=== PATIENT | female | born 1935 | race Caucasian/White ===

== ENCOUNTER → 2016-03-22 | Outpatient (CLI) | payer MEDICARE, BC | LOC: MC.RAD 09:39 | DX: Z12.31 Encounter for screening mammogram for malignant neoplasm of breast (principal) ==

== ENCOUNTER 2017-08-15 06:41 | Day surgery (SDC) | payer MEDICARE, BC ==
[~2017-08-15] VITALS: Ht 157.5 cm; Wt 55.0 kg
[2017-08-15 07:09] VITALS: BP 153/87; PULSE 83; TEMP 98.2
[2017-08-15] MEDS ORDERED: NATURAL E400 IU PO (07:13)
[2017-08-15] MEDS ORDERED: MULTIPLE VITAMI1 TA5 PO (07:13)
[2017-08-15] MEDS ORDERED: ADVIL200 MG PO (07:14)
[2017-08-15 09:00] VITALS: BP 135/77; PULSE 65; TEMP 97.7
[2017-08-15 09:15] VITALS: BP 148/92; PULSE 67
[2017-08-15 09:30] VITALS: BP 158/78; PULSE 66
== END 2017-08-15 09:53 | disposition home or self-care (01) ==
LOC: SDCO 06:41
DX: D12.5 Benign neoplasm of sigmoid colon (principal); K63.5 Polyp of colon; K55.20 Angiodysplasia of colon without hemorrhage; K57.30 Diverticulosis of large intestine without perforation or abscess without bleeding; K64.0 First degree hemorrhoids; K62.89 Other specified diseases of anus and rectum; F41.9 Anxiety disorder, unspecified; E78.00 Pure hypercholesterolemia, unspecified; Z90.710 Acquired absence of both cervix and uterus
CPT/HCPCS: OP; J2704; J7030

== ENCOUNTER → 2018-02-07 | Outpatient (CLI) | payer MEDICARE, BC ==
[~2018-02-07] MED LIST: ADVIL200 MG PO; MULTIPLE VITAMI1 TA5 PO; NATURAL E400 IU PO
== END ==
LOC: COL.RAD 07:45
DX: M50.31 Other cervical disc degeneration, high cervical region (principal); R51 Headache

== ENCOUNTER → 2018-04-09 | Outpatient (CLI) | payer MEDICARE, BC | LOC: COL.RAD 10:08 | DX: K76.89 Other specified diseases of liver (principal) ==

== ENCOUNTER → 2018-05-03 | Outpatient (CLI) | payer MEDICARE, BC | LOC: COL.RAD 11:00 | DX: N20.0 Calculus of kidney (principal); K76.89 Other specified diseases of liver ==

== ENCOUNTER → 2018-09-13 | Outpatient (CLI) | payer MEDICARE, BC | LOC: COL.RAD 09:40 | DX: Q44.6 Cystic disease of liver (principal) ==

== ENCOUNTER 2020-03-31 09:13 | Inpatient (IN) | payer MEDICARE, BC ==
[~2020-03-31] VITALS: Ht 157.5 cm; Wt 52.3 kg
[2020-03-31 10:03] LABS: BASO # 0.1 (0.0-0.2); BASO % 1.5 % (0.0-2.0); EOS % 1.2 % (0-4.0); GRAN # 1.9 (1.4-6.5); GRAN % 56.5 % (42.2-75.2); HEMATOCRIT 41.5 % (37.0-47.0); HEMOGLOBIN 13.7 g/dl (12.5-16.0); LYMPH # 0.8 (1.2-3.4); LYMPH % 24.7 % (20.0-51.0); MEAN CELL VOLUME 96 fl (80.0-100.0); MEAN CORPUSCULAR HEMOGLOBIN 32 pg (27.0-31.0); MEAN CORPUSCULAR HGB CONC 33 g/dl (33.0-37.0); MEAN PLATELET VOLUME 9.4 fl (7.4-10.4); MONO # 0.5 (0.1-0.6); MONO % 16.1 % (1.7-9.3); PLATELET COUNT 292 K/mm3 (130-400); RED BLOOD COUNT 4.34 M/mm3 (4.10-5.30); REDCELL DISTRIBUTION WIDTH-CV 12.9 % (11.5-14.5)
[2020-03-31 10:12] LABS: ALBUMIN 4.4 gm/dL (3.5-5.0); BILIRUBIN,TOTAL 0.8 mg/dL (0.0-1.0); C-REACTIVE PROTEIN 0.7 mg/dL (0.0-0.9); CALCIUM 9.6 mg/dL (8.4-10.2); CREATININE, serum 0.86 (0.52-1.25); POTASSIUM 3.6 mmol/L (3.4-5.0); TOTAL PROTEIN 7.8 gm/dL (6.4-8.2)
[2020-03-31 11:09] LABS: COLLECTION METHOD CLEAN CATCH
[2020-03-31 11:26] LABS: MUCOUS Present /lpf; PH 5 (5-8); URINE APPEARANCE Hazy; URINE BACTERIA Rare /hpf; URINE BILIRUBIN Negative (NEGATIVE); URINE BLOOD 1+ (NEGATIVE); URINE COLOR Yellow; URINE GLUCOSE Negative (NEGATIVE); URINE KETONE Negative (NEGATIVE); URINE LEUKOCYTE ESTERASE 1+ (NEGATIVE); URINE NITRATE Negative (NEGATIVE); URINE PROTEIN(semi-quant) Negative (NEGATIVE); URINE UROBILINOGEN Negative (NEGATIVE)
[2020-03-31] MEDS ORDERED: PROBIOTIC-MAJOR PO (12:26)
[2020-03-31 16:10] LABS: HEMOGLOBIN 12.2 g/dl (12.5-16.0)
[2020-03-31 16:13] LABS: HEMATOCRIT 36.3 % (37.0-47.0)
--- NOTE | 2020-03-31 20:00 | NUR ---
Arrived to surgical floor. Assessment complete. Lungs clear. Heart sounds normal. Bowels active x4. Pulses present throughout. No edema noted. IV left AC infusing without complications. Denies pain at this time. Orientated to surgical floor. All questions answered. Denies other needs at this time. Call light in reach.
--- NOTE | 2020-03-31 21:42 | NUR ---
Patient reported was told in ED patient would receive colonscopy in AM. Clarified with Dr. Castaneda. Patient supposed to start miralax earlier in evening. Orders placed now. House supervisior to bring bowel prep.
[2020-03-31 21:43] VITALS: BP 135/57; PULSE 63; TEMP 97.8
[2020-03-31 22:41] LABS: HEMOGLOBIN 11.4 g/dl (12.5-16.0)
[2020-03-31 22:46] LABS: HEMATOCRIT 34.1 % (37.0-47.0)
[2020-03-31 22:51] LABS: CLOSTRIDIUM DIFF A/B NEG; CLOSTRIDIUM DIFF A/B INTERP No C.diff present
--- NOTE | 2020-03-31 23:34 | NUR ---
Reported bloody stool. Assessed. Moderate amount of blood mixed with stool. Will continue drinking bowel prep.
[2020-04-01] VITALS (7 sets, daily range): BP systolic 124–156; BP diastolic 58–73; PULSE 58–73; TEMP 97.4–98.1
--- NOTE | 2020-04-01 02:10 | NUR ---
In and out of restroom. Denies needs. Call light in reach.
[2020-04-01 03:42] LABS: HEMATOCRIT 37.4 % (37.0-47.0); HEMOGLOBIN 12.6 g/dl (12.5-16.0)
[2020-04-01 03:52] LABS: CALCIUM 9.2 mg/dL (8.4-10.2); CREATININE, serum 0.72 (0.52-1.25); POTASSIUM 3.8 mmol/L (3.4-5.0)
--- NOTE | 2020-04-01 06:05 | NUR ---
Patient up to restroom several times during night due to bowel prep. Patient stool blood tinged during night. Otherwise uneventful night. Resting in bed this Am. Call light in reach.
--- NOTE | 2020-04-01 06:59 | NUR ---
Report given MIKE Shirley
--- NOTE | 2020-04-01 07:00 | NUR ---
Lying in bed with eyes open. ALert and oriented x4. Denies pain. Patient says that she has been to the bathroom multiple times passing loose stools due to the bowel prep. Patient says that she is ready to have colonoscopy done. Denies needs at this time.
--- NOTE | 2020-04-01 07:10 | NUR ---
Consent for procedure reviewed with the patient. Denies questions and signs consent. Will place on chart. Endoscopy here to take patient to procedure via cart. Patient uses bathroom one more time and transfers self. Gait steady.
[2020-04-01 07:47] LABS: HEMOGLOBIN 12.2 g/dl (12.5-16.0)
--- NOTE | 2020-04-01 08:19 | NUR ---
Patient back to room from procedure. Ambulated from cart to bed. Gait slow but steady. Denies pain. Says that she feels good. Hopes to be able to go home later. Food ordered for patient per her request. Water provided.
[2020-04-01] MEDS ORDERED: BENTYL 10MG10 MG/CAP PO (09:20)
--- NOTE | 2020-04-01 11:28 | NUR ---
Water Analyst met with patient to discuss discharge planning. Patient lives in [place] with her , Catrachito (ph#[phone]) and sees Dr. Cota at [facility] for primary care. Patient obtains medications from [facility] with no difficulties and uses no DME. Patient is independent with ADLS. Patient states she has never had home health services and is not interested in HH at this time. Patient states she has Advance Directives with her trust she completed with [facility], but can't remember who it designates. Patient plans to return home upon discharge, which may be today. SW collaborated with RN, Fern who advised patient has been independent in her room. SW will continue to follow as needed.
--- NOTE | 2020-04-01 12:32 | NUR ---
First visit from the larry operator. No needs right now.
--- NOTE | 2020-04-01 13:25 | NUR ---
Patient sitting up in bed. Tolerated lunch without difficulty. Patient denies any abd pain. Explain that we will update the provider to see if they will let her discharge and we will let her know. Denies additional needs at this time.
[2020-04-01] MEDS ORDERED: OMNICEF 300MG300 MG PO (13:33)
--- NOTE | 2020-04-01 14:00 | NUR ---
Go in to review discharge instructions. Patient says that she thinks that the Bentyl she took earlier is causing her vision to be off. COntacted ERNESTINA Shirley, and she will come see patient. Explain to the patient that the provider will come to see her and we will hold off on going over the discharge instructions at this time.
--- NOTE | 2020-04-01 14:45 | NUR ---
Confirm with ERNESTINA Shirley, that patient is still going to be discharged. Review all discharge instructions with the patient. Denies questions and signs all discharge paperwork. Discharge packet provided to the patient. Patient will let staff know when she is ready and her ride is here.
--- NOTE | 2020-04-01 15:25 | NUR ---
Patient ride here to pick her up. Patient assisted to POV with all belongings by this nurse.
== END 2020-04-01 15:25 | disposition home or self-care (01) | DRG 394 ==
LOC: COL.ER 09:13 → SURG 12:00
PROVIDERS: Family Medicine; Internal Medicine Gastroenterology; Physician Assistant; ADMIT Student in an Organized Health Care Education/Training Program
PROC: 0DBN8ZX Excision of Sigmoid Colon, Via Natural or Artificial Opening Endoscopic, Diagnostic (ICD-10-PCS; 2020-04-01)
PROC: 0DBP8ZX Excision of Rectum, Via Natural or Artificial Opening Endoscopic, Diagnostic (ICD-10-PCS; principal; 2020-04-01 07:30)
DX: K55.9 Vascular disorder of intestine, unspecified (principal); N39.0 Urinary tract infection, site not specified; K58.9 Irritable bowel syndrome, unspecified; Z20.828 Contact with and (suspected) exposure to other viral communicable diseases; I70.1 Atherosclerosis of renal artery; K64.4 Residual hemorrhoidal skin tags; K64.2 Third degree hemorrhoids; I48.91 Unspecified atrial fibrillation; F41.9 Anxiety disorder, unspecified; Z90.710 Acquired absence of both cervix and uterus
CPT/HCPCS: 99222-AI; 99223-AI; 99239; C9113; J2405; J2704; J2765; J7120

== ENCOUNTER 2021-06-10 11:08 | Emergency (ER) | payer MEDICARE, BC ==
[~2021-06-10] VITALS: Ht 157.5 cm; Wt 52.3 kg
[~2021-06-10 11:08] MED LIST changes: +BENTYL 10MG10 MG/CAP PO; +OMNICEF 300MG300 MG PO; +PROBIOTIC-MAJOR PO
[2021-06-10 12:30] VITALS: BP 173/72; PULSE 71; TEMP 98.2
== END 2021-06-10 12:34 | disposition home or self-care (01) ==
LOC: COL.ER 11:08
DX: S61.211A Laceration without foreign body of left index finger without damage to nail, initial encounter (principal); Z23 Encounter for immunization; W45.8XXA Other foreign body or object entering through skin, initial encounter

== ENCOUNTER → 2021-06-17 | Outpatient (CLI) | payer MEDICARE, BC ==
[2021-06-17 10:37] VITALS: BP 168/91; PULSE 74; TEMP 97.8
== END ==
LOC: COL.ER 10:22
DX: Z48.02 Encounter for removal of sutures (principal)

== ENCOUNTER 2023-04-10 09:26 | Emergency (ER) | payer MEDICARE, BC ==
[~2023-04-10] VITALS: Ht 157.5 cm; Wt 54.5 kg
[2023-04-10 09:31] VITALS: TEMP 97.4
[2023-04-10] MEDS ORDERED: XARELTO15 MG PO (10:58)
[2023-04-10] MEDS ORDERED: Rivaroxaban 15 MG TAB PO ONE (11:00)
[2023-04-10 11:31] VITALS: BP 153/76; PULSE 77
== END 2023-04-10 11:33 | disposition home or self-care (01) ==
LOC: COL.ER 09:26
DX: I82.402 Acute embolism and thrombosis of unspecified deep veins of left lower extremity (principal)